=== PATIENT | female | born 1965 | race Caucasian/White ===

== ENCOUNTER 2017-04-23 17:32 | Inpatient (IN) | payer OTHER ==
--- NOTE | 2017-04-23 17:30 | NUR ---
Admitted patient from [facility]. O2 Sat at 88% in RA. O2 administered at 2LPM. Not in apparent distress. With pain over right knee rated as 9/10. Oriented to unit and equipment. Informed Dr. Jacome and Dr. Crews of admission. Medication reconciliation done. Endorsed admission process and pictures to next shift.
[2017-04-23 17:45] VITALS: BP 131/75
[2017-04-23] MEDS ORDERED: Z GUARD REMEDY PASTE 57 GM TUBE TOP PRN (18:00)
[2017-04-23] MEDS ORDERED: FLUT1BLS IH (18:25)
[2017-04-23] MEDS ORDERED: OXYC-133 PO (18:25)
[2017-04-23] MEDS ORDERED: LISI-603 PO (18:25)
[2017-04-23] MEDS ORDERED: TIZA4TAB4 PO (18:25)
[2017-04-23] MEDS ORDERED: ASPI81TA31 PO (18:25)
[2017-04-23] MEDS ORDERED: RIVA20TA PO (18:25)
[2017-04-23] MEDS ORDERED: AMLO10TA2 PO (18:25)
--- NOTE | 2017-04-23 19:30 | NUR ---
RECEIVED PATIENT FROM DAY SHIFT NURSE. PATIENT LYING IN BED COMFORTABLY, A/O X4 WITH NO SIGNS OF ACUTE DISTRESS OR SOB. PATIENT ON O2 2LPM. PATIENT COMPLAINING OF 9/10 LEFT KNEE PAIN. NOTED WITH LEFT KNEE DRESSING WRAPPED AROUND SURGICAL SITE, CLEAN, DRY, INTACT. PERTINENT ASSESSMENTS DONE ON PATIENT. CALL LIGHT PLACED WITHIN REACH OF PATIENT. WILL CONTINUE TO MONITOR PATIENT THROUGH SHIFT.
[2017-04-23 19:40] VITALS: BP 154/75
[2017-04-23] MEDS ORDERED: OXYCODONE/APAP 5-325 MG TABLET PO STA (20:35)
--- NOTE | 2017-04-23 20:50 | NUR ---
PATIENT COMPLAINING OF RIGHT KNEE PAIN 02/09. CONTACTED DR. GOMEZ TO GET AN ORDER WHILE WAITING FOR MEDS TO BE RECONCILED. MD ORDERED PERCOCET 2 TABS STAT. WILL CARRY OUT ORDER AND MONITOR PT.
[2017-04-23] MEDS ORDERED: OXYCODONE/APAP 5-325 MG TABLET PO PRN (21:00)
--- NOTE | 2017-04-23 21:52 | NUR ---
PATIENT NOTED WITH HIGH BP 154/75 AT START OF SHIFT DUE TO RIGHT KNEE PAIN. ADMINISTERED 2 TABS PERCOCET 5/325 PER MD ORDER. RE ASSESSED BP CURRENTLY AT 144/68 WITH HR OF 104. PATIENT STILL COMPLAINING OF THROBBING RIGHT KNEE PAIN 02/09. WILL CONTACT DOCTOR AND CONTINUE TO MONITOR PATIENT. WILL RE ASSESS BP.
[2017-04-23] MEDS ORDERED: HYDROMORPHONE 1 MG/1 ML DISP.SYRIN IM PRN (23:15)
--- NOTE | 2017-04-23 23:20 | NUR ---
SPOKE WITH MD ARGUETA ABOUT PATIENT'S PAIN. MD ORDERED DILAUDID 1MG IM Q 12H. WILL CARRY OUT ORDER AND RE ASSESS PAIN LEVEL AND BP. WILL CONTINUE TO MONITOR PATIENT.
[2017-04-23] MEDS ORDERED: HYDROMORPHONE 2 MG/1 ML DISP.SYRIN ONE (23:32)
--- NOTE | 2017-04-23 23:52 | NUR ---
RE ASSESSED PATIENT AFTER IM DILAUDID. MEDICATION EFFECTIVE. BP DOWN TO 113/62 WITH HR OF 99. PATIENT STATES PAIN LEVEL HAS DECREASED. WILL CONTINUE TO MONITOR PATIENT THROUGH SHIFT.
[2017-04-24] MEDS: HYDROMORPHONE HCL 2 MG TABLET PO PRN ×3 (03:47→17:29)
[2017-04-24] MEDS ORDERED: HYDROMORPHONE HCL 2 MG TABLET ONE (04:02)
--- NOTE | 2017-04-24 06:50 | NUR ---
pt slept intermittently through the night. complaints of right knee pain during the night. pain medication administered as ordered per md. no signs of acute distress or sob. all needs attended to. safety measures implemented. call light within reach of pt. will endorse to day shift nurse.
--- NOTE | 2017-04-24 07:00 | NUR ---
Pt received in bed, a/ox4, No acute distress noted, Right knee with dressing clean dry and intact. Pt c/o of pain 5/10 scale. Ice pack on to right knee. Call light and personal belongings within reach. Plan of care discussed. Pt requested bedpan to voided, 300ml clear yellow urine.
[2017-04-24 07:09] LABS: BASOPHILS # (AUTO) 0.1 K/uL (0.0-8.0); EOSINOPHILS # (AUTO) 0.1 K/uL (0.0-0.7); EOSINOPHILS % (AUTO) 0.6 % (0.0-7.0); HEMOGLOBIN 10.7 G/DL (12.0-16.0); LYMPHOCYTES # (AUTO) 3.3 K/UL (0.8-4.8); LYMPHOCYTES % (AUTO) 31.3 % (20.5-51.5); MEAN CORPUSCULAR HEMOGLOBIN 33.9 UUG (27.0-31.0); MEAN CORPUSCULAR HGB CONC 34 g/dL (32.0-37.0); MEAN CORPUSCULAR VOLUME 101.2 FL (81.0-99.0); MONOCYTES # (AUTO) 1.3 K/UL (0.1-1.30); MONOCYTES % (AUTO) 12.6 % (0.0-11.0); NEUTROPHILS # (AUTO) 5.8 K/UL (1.8-8.9); NEUTROPHILS % (AUTO) 54.5 % (38.5-71.5); PLATELET COUNT (AUTO) 270 K/UL (150-450); RED BLOOD CELL COUNT(AUTO) 3.16 MIL/UL (4.2-5.4); WHITE BLOOD COUNT (AUTO) 10.6 K/UL (4.0-11.2)
[2017-04-24 07:28] LABS: CARBON DIOXIDE 27 mmol/L (21-32); CHLORIDE 103 mmol/L (98-107); CHOLESTEROL 198 mg/dL (<200); CREATININE 0.5 mg/dL (0.6-1.3); GLUCOSE 111 mg/dL (74-106); HDL CHOLESTEROL 64 mg/dL (40-60); MAGNESIUM 1.9 mg/dL (1.8-2.4); POTASSIUM 4.1 mmol/L (3.5-5.1); TRIGLYCERIDES 120 MG/DL (30-150); UREA NITROGEN, BLOOD 8 mg/dL (7-18)
[2017-04-24 08:00] VITALS: BP 147/111
[2017-04-24] MEDS: LISINOPRIL 20 MG TABLET PO SCH (08:38)
[2017-04-24] MEDS: AMLODIPINE 10 MG TABLET PO SCH (08:38)
[2017-04-24] MEDS: ASPIRIN 81 MG TAB.CHEW PO SCH (08:38)
[2017-04-24] MEDS: FLUTICASONE/VILANTEROL 1 EACH BLST.W.DEV IH SCH (08:39)
[2017-04-24] MEDS ORDERED: HYDROMORPHONE 2 MG/1 ML DISP.SYRIN IM PRN (09:00)
--- NOTE | 2017-04-24 09:11 | NUR ---
Pt c/o of increase pain 10/10 to Right knee, and requesting pain medication. Dilaudid 1mg IM given as requested. Will con't to monitor pain.
--- NOTE | 2017-04-24 11:08 | NUR ---
Pt with physical therapist, cpm therapy on. Pt with pain 02/09, Dilaudid 4mg PO given as requested for pain. Will con't to monitor.
[2017-04-24] MEDS: TIZANIDINE HCL 4 MG TABLET PO PRN (13:57)
[2017-04-24] MEDS: RIVAROXABAN 10 MG TABLET PO SCH (17:29)
[2017-04-24] MEDS ORDERED: OXYCODONE HCL 10 MG TAB.SR.12H PO SCH (19:30)
[2017-04-24 19:45] VITALS: BP 137/60
[2017-04-24] MEDS ORDERED: OXYCODONE HCL 10 MG TAB.SR.12H PO ONE (20:56)
[2017-04-24] MEDS ORDERED: OXYCODONE HCL 20 MG TAB.SR.12H PO ONE (20:57)
[2017-04-24] MEDS: OXYCODONE HCL 10 MG TAB.SR.12H PO SCH (21:17)
--- NOTE | 2017-04-24 21:26 | NUR ---
aaox4 complained of pain right knee. Oxycontin 30 mg po given @ [address] Crews. Oxycontin 30 mg @ 2199 scheduled not given.
[2017-04-25] MEDS: HYDROMORPHONE 2 MG/1 ML DISP.SYRIN IM PRN ×2 (01:56→18:55)
[2017-04-25] MEDS ORDERED: HYDROMORPHONE 2 MG/1 ML DISP.SYRIN ONE (02:03)
--- NOTE | 2017-04-25 02:45 | NUR ---
Patient complaining of multiple and unsuccessful attempts at urination, but says she "feels the urgency to urinate". Assisted with bedpan x 3, but all attempts unsuccessful. Bladder scan done noted with 514 mL of urine. Notified Dr. Barajas (division sergeant MD) with new orders of UA and insertion of kay catheter. Noted and carried out. Will continue to monitor. Safety maintained. Call light within reach. No acute distress noted.
--- NOTE | 2017-04-25 03:57 | NUR ---
#16 Fr Robbins catheter inserted via sterile technique per MD's order obtained with moderate amount of yellow urine. UA sent to lab. Needs attended. Patient feels much better. Will monitor patient.
[2017-04-25 04:24] LABS: *BILIRUBIN,URIN NEGATIVE (NEGATIVE); *BLOOD, URINE Trace-intact (NEGATIVE); *CLARITY,URINE SLIGHTLY CLOUDY (CLEAR); *COLOR,URINE YELLOW (YELLOW); *KETONES,URINE NEGATIVE (NEGATIVE); *PROTEIN,URINE NEGATIVE (NEGATIVE); *UROBILINOGEN,URINE 0.2 E.U./dl (NORMAL); LEUKOCYTE ESTERASE ,URINE NEGATIVE (NEGATIVE); NITRITE, URINE NEGATIVE (NEGATIVE); PH,URINE 7.5 (5.0-8.0); UGLUCOSE NEGATIVE (NEGATIVE)
[2017-04-25 04:28] LABS: BACTERIA,URINE NONE SEEN /HPF (NONE SEEN); RBC,URINE 0-3 /HPF (0-3); SQUAMOUS EPITHELIAL CELL,UR FEW /HPF (NONE SEEN); WBC,URINE 0-3 /HPF (0-3)
[2017-04-25] MEDS: OXYCODONE HCL 10 MG TAB.SR.12H PO SCH ×3 (06:05→21:12)
[2017-04-25] MEDS ORDERED: OXYCODONE HCL 20 MG TAB.SR.12H PO ONE (06:14)
[2017-04-25] MEDS ORDERED: OXYCODONE HCL 10 MG TAB.SR.12H PO ONE (06:14)
[2017-04-25] MEDS: LISINOPRIL 20 MG TABLET PO SCH (08:42)
[2017-04-25] MEDS: ASPIRIN 81 MG TAB.CHEW PO SCH (08:42)
[2017-04-25] MEDS: AMLODIPINE 10 MG TABLET PO SCH (08:42)
[2017-04-25 08:43] VITALS: BP 150/82
[2017-04-25] MEDS: FLUTICASONE/VILANTEROL 1 EACH BLST.W.DEV IH SCH (08:45)
[2017-04-25] MEDS: TIZANIDINE HCL 4 MG TABLET PO PRN ×2 (11:20→23:13)
--- NOTE | 2017-04-25 11:33 | NUR ---
PT SEEN ON ROUNDING. pt bp elevated. pt given bp meds. will reassess after an hour. pt took other scheduled medications. pt given ice pack and zanaflex for muscle spasms. talked to pharmacy about pain medications. pharmacist bam will contact md frausto about dilaudid dosages. kay intact. yellow and clear. no signs of infection on incision site. pt on 02 and tolerates. applied ice packs and pillow on right knee. will continue to monitor.
[2017-04-25] MEDS ORDERED: ACET-2154 PO (11:37)
[2017-04-25] MEDS ORDERED: DULCOLAX 10MG SUPP RC (11:39)
[2017-04-25] MEDS ORDERED: DIPH25TA PO (11:40)
[2017-04-25] MEDS ORDERED: DOCU-141 PO (11:40)
[2017-04-25] MEDS ORDERED: HYDR-4075 PO (11:42)
[2017-04-25] MEDS ORDERED: PANT40TA4 PO (11:46)
[2017-04-25] MEDS ORDERED: SENN-167 PO (11:46)
[2017-04-25] MEDS ORDERED: MAG30ORA PO (11:46)
[2017-04-25] MEDS ORDERED: MAGN400O6 PO (11:46)
[2017-04-25] MEDS ORDERED: ZOLP5TAB2 PO (11:46)
[2017-04-25] MEDS: HYDROMORPHONE HCL 2 MG TABLET PO PRN (16:37)
[2017-04-25] MEDS: RIVAROXABAN 10 MG TABLET PO SCH (17:32)
[2017-04-25] MEDS: ACETAMINOPHEN 325 MG TABLET PO PRN (18:32)
--- NOTE | 2017-04-25 18:36 | NUR ---
pt was put on cpm at 1500 by physical therapist. removed at 1700. see PT order for cpm. pt continues to be alert and oriented. dresssing changed. some seroangiounous fluid on lowest stable. pt given tylenol for temperature of 99.5 when assessed. HAND PATTERN MARKER notes that pt room was hot. pt wound site warm but no signs of infection. pt given dilaudid po for pain. will endorse to stain applicator nurse.
[2017-04-25 20:30] VITALS: BP 102/58
[2017-04-25] MEDS: ATORVASTATIN 20 MG TABLET PO SCH (21:11)
[2017-04-26] MEDS: HYDROMORPHONE 2 MG/1 ML DISP.SYRIN IM PRN (03:56)
--- NOTE | 2017-04-26 05:27 | NUR ---
aaox4 On continous O2 via nasal cannula. pulse ox 96 % vital signs stable. pain meds given as needed. tolerated well. will monitor patient. kay catheter draining yellow urine. Rt knee dressing clean dry and intact. no acute distress noted. kept comfortable.
[2017-04-26] MEDS: OXYCODONE HCL 10 MG TAB.SR.12H PO SCH ×3 (05:50→21:01)
[2017-04-26] MEDS: ASPIRIN 81 MG TAB.CHEW PO SCH (08:11)
[2017-04-26] MEDS: LISINOPRIL 20 MG TABLET PO SCH (08:11)
[2017-04-26] MEDS: AMLODIPINE 10 MG TABLET PO SCH (08:11)
[2017-04-26] MEDS: FLUTICASONE/VILANTEROL 1 EACH BLST.W.DEV IH SCH (08:11)
[2017-04-26 08:43] VITALS: BP 105/58
--- NOTE | 2017-04-26 09:19 | NUR ---
pt seen on rounding. pt continues to be on pain. pt given dilaudid and musle relaxant to prepare for ot therapy session. pt states that she feels febrile and wonders why. pt afebrile on assessment. no signs of infection on site. pt given warm packs on wound site. will continue to monitor.
[2017-04-26] MEDS: TIZANIDINE HCL 4 MG TABLET PO PRN ×2 (09:30→17:15)
[2017-04-26] MEDS: HYDROMORPHONE HCL 2 MG TABLET PO PRN (09:30)
[2017-04-26] MEDS: RIVAROXABAN 10 MG TABLET PO SCH (17:15)
--- NOTE | 2017-04-26 18:24 | NUR ---
pt stable throughout the day. pt had pt sessions. pt given muscle relaxants and pain meds for pain. pt had a shower. dressing changed. no signs of infection. pt was put on cpm machine preset by PT. pt still on 02 liters. will endorse to entry level chemist nurse.
[2017-04-26 19:40] VITALS: BP 111/52
[2017-04-26] MEDS: ATORVASTATIN 20 MG TABLET PO SCH (20:55)
[2017-04-27] MEDS: TIZANIDINE HCL 4 MG TABLET PO PRN ×2 (00:06→08:40)
--- NOTE | 2017-04-27 05:05 | NUR ---
AAOx4 Patient still on pain management. Medicated with Oxycontin 30 mg scheduled q12 hrs. Also on muscle relaxants. Needs attended. Robbins catheter draining yellow urine. Will monitor patient. No acute distress noted. Warm compress to right knee. Dressing clean dry and intact. No signs of infection noted. Tolerated CPM well.
[2017-04-27] MEDS: OXYCODONE HCL 10 MG TAB.SR.12H PO SCH ×3 (06:41→21:01)
[2017-04-27] MEDS ORDERED: OXYCODONE HCL 10 MG TAB.SR.12H PO ONE (06:47)
--- NOTE | 2017-04-27 07:30 | NUR ---
RECEIVED PATIENT AWAKE, ALERT AND ORIENTED LYING ON BED ON A SEMI- SAL'S POSITION WITH NO SOB OR ANY DISCOMFORTS AT THIS TIME. CALL LIGHT WITHIN REACH. ASKED PATIENT WHAT TIME SHE WILL GO OUT FOR HER 4 HOUR OUT ON PASS WITH HER RESPONSIBLE [employer]. PER PATIENT SHE DECIDED NOT TO GO ANYMORE. CALLED DR. ARGUETA AND INFORMED AND AGREED.
[2017-04-27 08:29] VITALS: BP 122/63
[2017-04-27] MEDS: LISINOPRIL 20 MG TABLET PO SCH (08:40)
[2017-04-27] MEDS: ASPIRIN 81 MG TAB.CHEW PO SCH (08:41)
[2017-04-27] MEDS: AMLODIPINE 10 MG TABLET PO SCH (08:41)
[2017-04-27] MEDS: FLUTICASONE/VILANTEROL 1 EACH BLST.W.DEV IH SCH (09:09)
[2017-04-27] MEDS: MAGNESIUM HYDROXIDE 30 ML LIQUID UDC PO PRN (09:44)
[2017-04-27] MEDS: HYDROMORPHONE 2 MG/1 ML DISP.SYRIN IM PRN (10:38)
[2017-04-27] MEDS: HYDROMORPHONE HCL 2 MG TABLET PO PRN ×2 (15:09→22:18)
[2017-04-27] MEDS ORDERED: DOCUSATE SODIUM 100 MG CAPSULE PO SCH (17:00)
[2017-04-27] MEDS ORDERED: ACETAMINOPHEN 325 MG TABLET PO PRN (17:00)
[2017-04-27] MEDS ORDERED: ZOLPIDEM 5 MG TABLET PO PRN (17:00)
[2017-04-27] MEDS ORDERED: SENNOSIDES 1 TABLET PO PRN (17:00)
[2017-04-27] MEDS: RIVAROXABAN 10 MG TABLET PO SCH (17:35)
--- NOTE | 2017-04-27 19:30 | NUR ---
Pt in room alert awake in no acute distress. Continues to have on and off pain to right knee up to 8/10. No active bleeding or drainage noted to dressing on affected area. Able to follow simple commands. Pt noted with several bruising to left wrist area possibly due to current anticoagulant therapy. Pt encouraged to continue wearing n/c at 2L/min due to 02 sat 94%. Pt verbalized understanding and made aware of pain medication timing avaialabilty. Continue to monitor. Call light placed withinr each. Encouraged deep breathing exercises.
[2017-04-27 19:40] VITALS: BP 115/78
[2017-04-27] MEDS: ATORVASTATIN 20 MG TABLET PO SCH (21:00)
[2017-04-27] MEDS: SENNOSIDES/DOCUSATE SODIUM TABLET PO SCH (21:01)
--- NOTE | 2017-04-28 01:00 | NUR ---
Pt in room asleep. Continue to monitor.
[2017-04-28] MEDS: TIZANIDINE HCL 4 MG TABLET PO PRN ×3 (01:21→17:41)
--- NOTE | 2017-04-28 05:30 | NUR ---
Pt in room alert awake in no acute distress. Dressing to right knee intact with no increased drainage or bleeding noted. Pt awaiting routine am pain medications. Hot packs offered. Continue to monitor. Call light placed within reach.
[2017-04-28] MEDS: OXYCODONE HCL 10 MG TAB.SR.12H PO SCH ×3 (06:01→21:02)
[2017-04-28] MEDS: PANTOPRAZOLE SODIUM 40 MG TABLET.DR PO SCH (06:02)
[2017-04-28] MEDS ORDERED: OXYCODONE HCL 20 MG TAB.SR.12H PO ONE (06:11)
[2017-04-28] MEDS ORDERED: OXYCODONE HCL 10 MG TAB.SR.12H PO ONE (06:11)
[2017-04-28 07:10] VITALS: BP 97/53
[2017-04-28] MEDS: HYDROMORPHONE 2 MG/1 ML DISP.SYRIN IM PRN ×2 (08:12→10:11)
[2017-04-28] MEDS: FLUTICASONE/VILANTEROL 1 EACH BLST.W.DEV IH SCH (08:56)
[2017-04-28] MEDS: LISINOPRIL 20 MG TABLET PO SCH ×2 (08:57→09:00)
[2017-04-28] MEDS: ASPIRIN 81 MG TAB.CHEW PO SCH (08:59)
[2017-04-28] MEDS: AMLODIPINE 10 MG TABLET PO SCH (09:00)
--- NOTE | 2017-04-28 09:01 | NUR ---
medication note b/p meds held for decreased b/p 97/53. pt agrees
[2017-04-28] MEDS: HYDROMORPHONE HCL 2 MG TABLET PO PRN (11:44)
[2017-04-28 13:41] VITALS: BP 93/52
[2017-04-28] MEDS: OXYCODONE HCL 20 MG TAB.SR.12H PO SCH ×2 (14:24→21:02)
[2017-04-28] MEDS: RIVAROXABAN 10 MG TABLET PO SCH (17:41)
[2017-04-28 19:30] VITALS: BP 103/54
--- NOTE | 2017-04-28 19:30 | NUR ---
RECEIVED PATIENT FROM DAY SHIFT NURSE. SHIFT REPORT AT BEDSIDE. PATIENT LYING COMFORTABLY IN BED WITH NO SIGNS OF SOB OR ACUTE DISTRESS. ON 2L O2 VIA NASAL CANULA. PERTINENT ASSESSMENTS DONE. CALL LIGHT WITHIN REACH OF PATIENT. WILL CONTINUE TO MONITOR PATIENT THROUGH SHIFT.
[2017-04-28] MEDS: SENNOSIDES/DOCUSATE SODIUM TABLET PO SCH (20:29)
[2017-04-28] MEDS: ATORVASTATIN 20 MG TABLET PO SCH (20:29)
[2017-04-28] MEDS ORDERED: ATORVASTATIN 10 MG TABLET PO SCH (21:00)
[2017-04-29] MEDS: TIZANIDINE HCL 4 MG TABLET PO PRN ×3 (04:05→23:04)
[2017-04-29] MEDS: OXYCODONE HCL 10 MG TAB.SR.12H PO SCH ×3 (05:27→21:05)
[2017-04-29] MEDS: OXYCODONE HCL 20 MG TAB.SR.12H PO SCH ×3 (05:27→21:06)
[2017-04-29] MEDS: PANTOPRAZOLE SODIUM 40 MG TABLET.DR PO SCH (06:11)
--- NOTE | 2017-04-29 06:26 | NUR ---
PATIENT SLEPT INTERMITTENTLY THROUGH THE NIGHT. VITALS STABLE THROUGH THE SHIFT. NO SIGNS OF SOB OR ACUTE DISTRESS. ALL NEEDS ATTENDED TO. FEELINGS OF PAIN THROUGH THE SHIFT. PAIN MEDICATIONS ADMINISTERED ORDERED BY MD. SAFETY MEASURES IMPLEMENTED. CALL LIGHT WITHIN REACH OF PATIENT. WILL ENDORSE TO DAY SHIFT NURSE.
[2017-04-29 07:20] VITALS: BP 93/58
[2017-04-29] MEDS: MAGNESIUM HYDROXIDE 30 ML LIQUID UDC PO PRN (07:21)
[2017-04-29] MEDS: ASPIRIN 81 MG TAB.CHEW PO SCH (08:35)
[2017-04-29] MEDS: FLUTICASONE/VILANTEROL 1 EACH BLST.W.DEV IH SCH (08:35)
[2017-04-29] MEDS: AMLODIPINE 10 MG TABLET PO SCH (09:00)
[2017-04-29] MEDS: LISINOPRIL 20 MG TABLET PO SCH (09:00)
--- NOTE | 2017-04-29 09:15 | NUR ---
pt seen on rounding. pt continues to be alert and oriented. pt on o2 liters and tolerating. with held bp meds because blood pressure was too low. will give medicine it later time to reassess bp. pt requested to have mom to relieve perceived constipation. pt denies that constipation is caused by pain meds. she states that she doesnt eat much and thats why she does not have bm. will continue to monitor.
[2017-04-29] MEDS: HYDROMORPHONE HCL 2 MG TABLET PO PRN (10:34)
[2017-04-29] MEDS: RIVAROXABAN 10 MG TABLET PO SCH (17:00)
--- NOTE | 2017-04-29 17:53 | NUR ---
pt bp low. explained the pt about risks of taking dilaudid when bp is low. pt understands and did not take dilaudid as recommended. pt given scheduled pain med. pt also given mom for constipation. pt had a bowel movement. pt also given muscle relaxant while on cpm machine. will instruct shift production associate nurse to reapply cpm machine. changed dressing. no signs of infection. pt continues to have low blood pressure througout the day. pt on 2l nc. will endorse to shift production associate nurse.
[2017-04-29] MEDS: ATORVASTATIN 20 MG TABLET PO SCH (20:27)
[2017-04-29] MEDS: SENNOSIDES/DOCUSATE SODIUM TABLET PO SCH (20:27)
[2017-04-29 20:56] VITALS: BP 99/51
[2017-04-30] MEDS: OXYCODONE HCL 10 MG TAB.SR.12H PO SCH ×3 (06:06→21:01)
[2017-04-30] MEDS: PANTOPRAZOLE SODIUM 40 MG TABLET.DR PO SCH (06:06)
[2017-04-30] MEDS: OXYCODONE HCL 20 MG TAB.SR.12H PO SCH ×3 (06:06→21:02)
--- NOTE | 2017-04-30 06:52 | NUR ---
patient slept intermittently through the shift. no signs of sob or acute distress. on 2L o2 via nc. all needs attended to. medications administered as ordered by md. vital signs stable through shift. safety measures implemented. call light within reach of pt. will endorse to day shift nurse.
--- NOTE | 2017-04-30 08:00 | NUR ---
pt seen on rounding. pt continues to complain of pain. pt given zanaflex as requested. pt recommened not to have pain meds because it is not scheduled. no signs of infection or dranaige on site. no new injuries noted. will continue to monitor.
[2017-04-30] MEDS: AMLODIPINE 10 MG TABLET PO SCH (08:02)
[2017-04-30] MEDS: TIZANIDINE HCL 4 MG TABLET PO PRN ×3 (08:02→23:55)
[2017-04-30] MEDS: ASPIRIN 81 MG TAB.CHEW PO SCH (08:03)
[2017-04-30] MEDS: LISINOPRIL 20 MG TABLET PO SCH (08:03)
[2017-04-30] MEDS: FLUTICASONE/VILANTEROL 1 EACH BLST.W.DEV IH SCH (08:05)
[2017-04-30 08:14] VITALS: BP 120/56
[2017-04-30] MEDS: HYDROMORPHONE HCL 2 MG TABLET PO PRN (10:46)
--- NOTE | 2017-04-30 14:51 | NUR ---
Interdisciplinary Team Conference
[2017-04-30] MEDS: RIVAROXABAN 10 MG TABLET PO SCH (17:35)
--- NOTE | 2017-04-30 20:30 | NUR ---
resting in bed when received. aaox4 needs attended. right knee dressing intact. kay catheter draining yellow urine. I & O monitor. Needs attended. tolerated po meds well. medicated with oxycontin 30 mg po as scheduled. kept comfortable.
[2017-04-30 20:38] VITALS: BP 91/40
[2017-04-30] MEDS: ATORVASTATIN 20 MG TABLET PO SCH (20:59)
[2017-04-30] MEDS: SENNOSIDES/DOCUSATE SODIUM TABLET PO SCH (21:00)
[2017-05-01] MEDS: OXYCODONE HCL 20 MG TAB.SR.12H PO SCH ×3 (05:13→21:28)
[2017-05-01] MEDS: OXYCODONE HCL 10 MG TAB.SR.12H PO SCH ×3 (05:14→21:29)
--- NOTE | 2017-05-01 05:38 | NUR ---
quiet night. slept well no acute distress noted. attended to needs. will monitor patient.
[2017-05-01] MEDS: PANTOPRAZOLE SODIUM 40 MG TABLET.DR PO SCH (06:03)
--- NOTE | 2017-05-01 07:30 | NUR ---
RECEIVED PT IN BED, A/O X4, ON 2L/NC, NO RESPIRATORY DISTRESS NOTED. HOB ELEVATED, SURGICAL DRESSING TO RIGHT KNEE CLEAN INTACT AND PATENT. GOOD CAPILLARY REFILL, C/O OF PAIN 5/10, REQUESTING XANAFLEX WITH HER SCHEDULE MORNING MEDICATIONS. PLAN OF CARE DISCUSSED, CALL LIGHT AND PERSONAL BELONGINGS AT THE BEDSIDE.
[2017-05-01 08:00] VITALS: BP 76/47
[2017-05-01] MEDS: ASPIRIN 81 MG TAB.CHEW PO SCH (08:16)
[2017-05-01] MEDS: TIZANIDINE HCL 4 MG TABLET PO PRN ×2 (08:16→16:34)
[2017-05-01] MEDS: FLUTICASONE/VILANTEROL 1 EACH BLST.W.DEV IH SCH (08:16)
[2017-05-01] MEDS: AMLODIPINE 10 MG TABLET PO SCH (08:25)
[2017-05-01] MEDS: LISINOPRIL 20 MG TABLET PO SCH (08:26)
--- NOTE | 2017-05-01 08:28 | NUR ---
pt noted with b/p 76/47 pt asymptomatic. b/p rechecked with reading of 91/48. Amlodipine and lisinopril medications held. Pt denies any headache, denies dizziness. will con't to monitor closely.
[2017-05-01 08:34] VITALS: BP 91/48
[2017-05-01] MEDS: HYDROMORPHONE HCL 2 MG TABLET PO PRN (11:27)
--- NOTE | 2017-05-01 11:27 | NUR ---
PT TOLERATED COMPLETE SHOWER, C/O OF RIGHT KNEE PAIN 9/10 SCALE AND REQUESTING DILAUDID 8MG. MEDICATION GIVEN PO. WILL CON'T TO MONITOR FOR MED EFFECTIVENESS.
[2017-05-01 12:09] VITALS: BP 115/46
--- NOTE | 2017-05-01 14:49 | NUR ---
I agree Addendum: 05/01/17 at 1449 by JUAN SWANN OT Amended: Links added.
--- NOTE | 2017-05-01 14:50 | NUR ---
I agree Addendum: 05/01/17 at 1450 by JUAN SWANN OT Amended: Links added.
[2017-05-01] MEDS: RIVAROXABAN 10 MG TABLET PO SCH (17:17)
--- NOTE | 2017-05-01 18:07 | NUR ---
CONDITION REMAINS STABLE, NO ACUTE DISTRESS NOTED. WAS IN TO VISIT. PT WAS ABLE TO PARTICIPATE WITH THERAPY. PT REMAINS ON O2 AT 2L/MIN VIA NC. PT NOTED A FEW TIMES WITH O2 OFF, O2SAT ON R/A WAS 84%. pT EDUCATED ON IMPORTANCE OF NOT TAKING HER O2 OFF, PT SATES SHE DOES NOT FEEL SOB. DRESSING TO RIGHT KNEE DONE ORDER, TAMIA INTACT, NO S/S OF INFECTION, NO DRAINAGE NOTED, NO REDNESS. CALL LIGHT AND PERSONAL BELONGINGS WITHIN REACH.
--- NOTE | 2017-05-01 19:40 | NUR ---
Received pt in bed, awake alert and oriented watching TV. Verbally responsive and able to make needs known. Denies pain or discomfort at this time. No apparent distress noted. Robbins catheter noted, draining clear yellow urine. Denies pain or discomfort. On O2 NC 2L/min, tolerating well. All safety measures and fall precautions maintained. Call light within reach. Will continue to monitor.
[2017-05-01 19:45] VITALS: BP 101/53
[2017-05-01] MEDS: SENNOSIDES/DOCUSATE SODIUM TABLET PO SCH (21:00)
[2017-05-01] MEDS: ATORVASTATIN 20 MG TABLET PO SCH (21:29)
[2017-05-02] MEDS: TIZANIDINE HCL 4 MG TABLET PO PRN ×3 (00:12→18:02)
[2017-05-02] MEDS: HYDROMORPHONE HCL 2 MG TABLET PO PRN ×2 (03:02→10:43)
[2017-05-02] MEDS: OXYCODONE HCL 20 MG TAB.SR.12H PO SCH ×3 (05:22→20:26)
[2017-05-02] MEDS: OXYCODONE HCL 10 MG TAB.SR.12H PO SCH ×2 (05:22→22:00)
--- NOTE | 2017-05-02 05:51 | NUR ---
Pt slept comfortably throughout the shift. No acute distress noted. Breathing even and unlabored. All needs met promptly and well attended to. Kept clean and dry. All meds given as ordered and well tolerated. Medicated for pain PRN as ordered. All safety measures and fall precautions maintained. Call light within reach. All personal belongings within reach. Will continue to monitor. Will endorse to AM shift.
[2017-05-02] MEDS: PANTOPRAZOLE SODIUM 40 MG TABLET.DR PO SCH (06:26)
--- NOTE | 2017-05-02 07:30 | NUR ---
PATIENT RECEIVED FROM MANAGER OF MANUFACTURING. PATIENT AWAKE ALERT ORIENTED X4 ON NC 2 LITERS NO FLAMMABLES IN ROOM. NO DISTRESS CALL LIGHT WITHIN REACH. ROOM CLEAN AND CLEAR OF CLUTTER BED IN LOWEST SETTING. PATIENT REQUESTED MUSCLE RELAXANT FOR PHYSICAL THERAPY.
[2017-05-02 08:10] VITALS: BP 111/60
[2017-05-02] MEDS: FLUTICASONE/VILANTEROL 1 EACH BLST.W.DEV IH SCH (08:24)
[2017-05-02] MEDS: ASPIRIN 81 MG TAB.CHEW PO SCH (08:24)
[2017-05-02] MEDS: AMLODIPINE 10 MG TABLET PO SCH (08:34)
[2017-05-02] MEDS: LISINOPRIL 20 MG TABLET PO SCH (08:34)
[2017-05-02] MEDS: RIVAROXABAN 10 MG TABLET PO SCH (17:59)
[2017-05-02 19:45] VITALS: BP 120/85
[2017-05-02] MEDS: SENNOSIDES/DOCUSATE SODIUM TABLET PO SCH (20:26)
[2017-05-02] MEDS: ATORVASTATIN 20 MG TABLET PO SCH (20:26)
[2017-05-03] MEDS: TIZANIDINE HCL 4 MG TABLET PO PRN ×3 (02:18→18:34)
--- NOTE | 2017-05-03 02:29 | NUR ---
pt seen on rounding. pt given meds for pain as requested. pt continues to sat wnl when checked. pt planned to be weaned off oxygen. pt tolerates room air. vitals stable. pt took muscle relaxant and applied ice pack as requested. instructed pt to sleep. pt agreed. dressing changed. no signs of infection. will continue to monitor.
[2017-05-03] MEDS: OXYCODONE HCL 10 MG TAB.SR.12H PO SCH ×3 (06:30→22:01)
[2017-05-03] MEDS: PANTOPRAZOLE SODIUM 40 MG TABLET.DR PO SCH (06:31)
[2017-05-03] MEDS: OXYCODONE HCL 20 MG TAB.SR.12H PO SCH ×3 (06:31→22:02)
--- NOTE | 2017-05-03 07:00 | NUR ---
pt slept interminently throughout the night pt continues to request for pain meds. pt set the alarm on her phone as to when to get pain meds. pt instructed to sleep though the night. will endorse to night time nanny nurse.
--- NOTE | 2017-05-03 07:30 | NUR ---
Patient received from shift coordinator nurse. Patient awake oriented x4. Assessed right pedal pulse regular and bounding and capillary refill 3 seconds. patient in bed lowest setting, side rails up, call light in reach. Continues to request for pain management or muscle relaxant. All needs attended will continue to monitor.
[2017-05-03 08:00] VITALS: BP 119/50
[2017-05-03] MEDS: AMLODIPINE 10 MG TABLET PO SCH (09:00)
[2017-05-03] MEDS: LISINOPRIL 20 MG TABLET PO SCH (09:00)
[2017-05-03] MEDS: ASPIRIN 81 MG TAB.CHEW PO SCH (09:03)
[2017-05-03] MEDS: FLUTICASONE/VILANTEROL 1 EACH BLST.W.DEV IH SCH (09:03)
[2017-05-03] MEDS: ACETAMINOPHEN 325 MG TABLET PO PRN (12:49)
[2017-05-03] MEDS: HYDROMORPHONE HCL 2 MG TABLET PO PRN ×2 (13:02→20:38)
[2017-05-03] MEDS: RIVAROXABAN 10 MG TABLET PO SCH (18:36)
--- NOTE | 2017-05-03 19:34 | NUR ---
Per MD order D/C Robbins catheter for 05/04/2017 endorsed to night guard.
--- NOTE | 2017-05-03 19:40 | NUR ---
Received pt resting comfortably in bed. AAO x4. Vital signs stable. No acute distress noted. Robbins catheter draining well, to be removed in the morning. Safety measures maintained. Call light and personal belongings within reach. Will continue to monitor.
[2017-05-03 19:45] VITALS: BP 128/49
[2017-05-03] MEDS: SENNOSIDES/DOCUSATE SODIUM TABLET PO SCH (20:38)
[2017-05-03] MEDS: ATORVASTATIN 20 MG TABLET PO SCH (20:38)
--- NOTE | 2017-05-03 22:00 | NUR ---
Wound site was cleaned and dressing changed. No signs of infection. Will continue to monitor.
[2017-05-04] MEDS: TIZANIDINE HCL 4 MG TABLET PO PRN ×3 (02:37→18:07)
[2017-05-04] MEDS: OXYCODONE HCL 20 MG TAB.SR.12H PO SCH ×3 (05:58→20:38)
[2017-05-04] MEDS: OXYCODONE HCL 10 MG TAB.SR.12H PO SCH ×3 (05:59→20:37)
[2017-05-04] MEDS: PANTOPRAZOLE SODIUM 40 MG TABLET.DR PO SCH (06:00)
[2017-05-04] MEDS: HYDROMORPHONE HCL 2 MG TABLET PO PRN ×3 (07:07→19:04)
--- NOTE | 2017-05-04 07:15 | NUR ---
Robbins catheter removed as per Dr. Crews. No signs of infection.
--- NOTE | 2017-05-04 08:17 | NUR ---
SBAR report received near bedside, board updated. Pt assessed, no SOB on RA, pain managed to be tolerable with morning administration of Oxycodone as scheduled. Pt alert, oriented x4, right pedal pulse assessed, regular and bounding with a cap refill of <3 sec. All comfort and safety needs met at this time. Call light and personal items within reach. will continue to monitor.
[2017-05-04] MEDS: ASPIRIN 81 MG TAB.CHEW PO SCH (09:58)
[2017-05-04] MEDS: FLUTICASONE/VILANTEROL 1 EACH BLST.W.DEV IH SCH (09:58)
--- NOTE | 2017-05-04 14:41 | NUR ---
Pt was able to successfully void in bedside commode, urine is yellow and clear, no pain on voiding since catheter removal last night. CPM applied at 80 degrees and -3, Pt compliant with continuing until dinner time. Decreased BP of 98/42, 74 pulse, and 99% O2 on RA. Pain medications administered per PRN and scheduled orders for 8/10 pain. Will continue to monitor.
[2017-05-04] MEDS: RIVAROXABAN 10 MG TABLET PO SCH (18:12)
--- NOTE | 2017-05-04 19:11 | NUR ---
Pt c/o pain 7-01/09 r/t right knee incision, PRN pain medication administered per orders. Pt repositioned and voided again independently in bedside commode. Call light within reach. Will endorse to molder wax ball.
[2017-05-04 19:30] VITALS: BP 91/43
[2017-05-04] MEDS: ATORVASTATIN 20 MG TABLET PO SCH (20:38)
[2017-05-04] MEDS: SENNOSIDES/DOCUSATE SODIUM TABLET PO SCH (20:40)
[2017-05-05] MEDS: HYDROMORPHONE HCL 2 MG TABLET PO PRN ×2 (01:38→08:28)
[2017-05-05] MEDS: TIZANIDINE HCL 4 MG TABLET PO PRN ×2 (01:39→10:17)
--- NOTE | 2017-05-05 02:21 | NUR ---
pt seen on rounding. pt given pm meds whole. pt given pain meds and muscle relaxant to relief pain and relax twitches on muscle as patient states. replaced dressing and applied a new dressing. pt sleeps interminently and looks for next schedule of meds. will continue to monitor.
[2017-05-05] MEDS: OXYCODONE HCL 10 MG TAB.SR.12H PO SCH ×2 (06:28→14:18)
[2017-05-05] MEDS: PANTOPRAZOLE SODIUM 40 MG TABLET.DR PO SCH (06:29)
[2017-05-05] MEDS: OXYCODONE HCL 20 MG TAB.SR.12H PO SCH ×2 (06:29→14:18)
--- NOTE | 2017-05-05 06:39 | NUR ---
pt slept interminently through the night because patient wants pain meds as scheduled. pt assisted to the commode as needed. vitals stable. call light within reach. will endorse to day shift nurse.
[2017-05-05 08:00] VITALS: BP 95/41
[2017-05-05] MEDS: FLUTICASONE/VILANTEROL 1 EACH BLST.W.DEV IH SCH (08:26)
[2017-05-05] MEDS: AMLODIPINE 10 MG TABLET PO SCH ×2 (08:27→08:33)
[2017-05-05] MEDS: LISINOPRIL 20 MG TABLET PO SCH ×2 (08:27→08:33)
[2017-05-05] MEDS: ASPIRIN 81 MG TAB.CHEW PO SCH (08:29)
[2017-05-05 08:33] VITALS: BP 95/41
--- NOTE | 2017-05-05 15:33 | NUR ---
At this time patient DCD home and brain picker by . Patient AAOX4. vitals signs stable. Surgical incision covered with dressing, rom in place, clean dry intact. no s/s of infection. DCD instructions provided instructed to brain picker prescription from [facility] at address provided by her, medications returned, and forms signs. Belongings list sign by patient. Instructed to follow up with 05/09/17 appointment for rom removal. Patient verbalized understanding of dcd. instructions. Patient assisted to back door and brain picker by her .
--- NOTE | 2017-05-05 16:03 | NUR ---
I agree Addendum: 05/05/17 at 1607 by KAROLYN SALGUERO OT Amended: Links added.
--- NOTE | 2017-05-05 16:08 | NUR ---
I agree Addendum: 05/05/17 at 1608 by KAROLYN SALGUERO OT Amended: Links added.
--- NOTE | 2017-05-05 16:09 | NUR ---
I agree Addendum: 05/05/17 at 1609 by KAROLYN SALGUERO OT Amended: Links added.
== END 2017-05-05 15:30 | disposition home health service (06) | DRG 560 ==
PROVIDERS: ADMIT Physical Medicine & Rehabilitation Pain Medicine; ATTEND Physical Medicine & Rehabilitation Pain Medicine
DX: Z47.1 Aftercare following joint replacement surgery (principal); Z68.41 Body mass index [BMI] 40.0-44.9, adult; D68.59 Other primary thrombophilia; E66.01 Morbid (severe) obesity due to excess calories; M17.11 Unilateral primary osteoarthritis, right knee; Z96.651 Presence of right artificial knee joint; J45.909 Unspecified asthma, uncomplicated; Z86.711 Personal history of pulmonary embolism; I10 Essential (primary) hypertension; Z79.891 Long term (current) use of opiate analgesic; I48.91 Unspecified atrial fibrillation; Z74.09 Other reduced mobility; E78.5 Hyperlipidemia, unspecified; Z79.01 Long term (current) use of anticoagulants; Z88.1 Allergy status to other antibiotic agents; Z88.8 Allergy status to other drugs, medicaments and biological substances; D53.9 Nutritional anemia, unspecified
CPT/HCPCS: 36415; 83735; 84100; 85025; 92507; 92523; 97110; 97112; 97116; 97165; 97530; 97535; J1170